=== PATIENT | female | born 1980 | race Two or more races ===

== ENCOUNTER 2017-11-06 14:52 | Emergency (ER) | payer OTHER, BC ==
[2017-11-06] MEDS ORDERED: KETOROLAC TROMETHAMINE 60 MG/2 ML SDV IM ONE (16:07)
--- NOTE | 2017-11-06 16:30 | ER Document Report ---
ED General Pain - General Chief Complaint: Low Back Pain Stated Complaint: BACK PAIN Time Seen by Provider: 11/06/17 15:56 Mode of Arrival: Ambulatory Information source: Patient Notes: Patient is a 37-year-old female comes emergency room complaining of back pain. Patient states that she was hurt on the job back in 2013 at the same company she is with now. She states that she went through physical therapy and ibuprofen and Flexeril and got better. She is been doing daily exercises before she goes to work ever since 2013. Just to stop this from from reoccurring. She states that one other time she did threw her back out and she also did the Flexeril and the ibuprofen along with heating pads and took about a week to get better. 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 It currently does not radiate anywhere except across the back. Most of her pain is on the ribs on each side of the back. Not in the vertebral column. She calls it appears to be in pinching pain. She also denies any loss of urine or stool. TRAVEL OUTSIDE OF THE [place] IN LAST 30 DAYS: No - HPI Onset: This afternoon Onset/Duration: Sudden, Persistent, Worse Quality of pain: Other - Piercing pinching pain Pain Level: 4 Context: Chronic problem Typical of prior episodes of painful crisis: Yes Associated symptoms: Muscle aches Exacerbated by: Denies, Supine, Sitting, Standing, Movement, Walking, Coughing, Deep breathing Relieved by: Denies, Supine, Sitting, Standing, Remaining still Similar symptoms previously: Yes Recently seen / treated by doctor: No - Related Data Allergies/Adverse Reactions: red dye [Red Dye] Allergy (Verified 11/06/17 14:53) Past Medical History - General Information source: Patient - Social History Smoking Status: Never Smoker Cigarette use (# per day): No Chew tobacco use (# tins/day): No Smoking Education Provided: No Frequency of alcohol use: Social Drug Abuse: None Family History: Reviewed & Not Pertinent Patient has suicidal ideation: No Patient has homicidal ideation: No - Past Medical History Cardiac Medical History: Reports: Hx Hypertension Renal/ Medical History: Denies: Hx Peritoneal Dialysis Past Surgical History: Reports: Hx Appendectomy, Hx Tubal Ligation - Immunizations Hx Diphtheria, Pertussis, Tetanus Vaccination: Yes Review of Systems - Review of Systems Constitutional: No symptoms reported EENT: No symptoms reported Cardiovascular: No symptoms reported Respiratory: No symptoms reported Gastrointestinal: No symptoms reported Genitourinary: No symptoms reported Female Genitourinary: No symptoms reported Musculoskeletal: Back pain, Muscle pain Skin: No symptoms reported Hematologic/Lymphatic: No symptoms reported Neurological/Psychological: No symptoms reported -: Yes All other systems reviewed and negative Physical Exam - Vital signs Vitals: Temp Pulse Resp BP Pulse Ox 98.1 F 69 16 125/70 100 11/06/17 14:57 11/06/17 14:57 11/06/17 14:57 11/06/17 14:57 11/06/17 14:57 Interpretation: Normal - Notes Notes: Well-nourished well-developed 37-year-old female. No apparent distress but appears uncomfortable - General General appearance: Alert - HEENT Head: Normocephalic, Atraumatic Eyes: Normal - Respiratory Respiratory status: No respiratory distress Chest status: Nontender Breath sounds: Normal. No: Rales, Rhonchi, Stridor, Wheezing Chest palpation: Normal - Cardiovascular Rhythm: Regular Heart sounds: Normal auscultation Murmur: No - Abdominal Inspection: Normal Distension: No distension. No: Distended, Tympanitic, Distended bladder Bowel sounds: Normal Tenderness: Nontender. No: Tender, McBurney's point, Tsang's sign, Guarding, Rebound Organomegaly: No: No organomegaly, Hepatomegaly, Splenomegaly, Mass - Back Back: Tender, Other - Examination of patient's back shows tenderness to be right around the thoracic spine area. At the end of it. Pain radiates to the right and the left from midline. It is almost as if she is spasming in the intercostal muscles of the ribs. She displays good DTRs she has negative straight leg raises and vascular exam is normal.. 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 No: Involuntary movements, Pronator drift, Weakness, Hemiplegia - Skin Skin Temperature: Warm Skin Moisture: Dry Skin Color: Normal, [place] Course - Re-evaluation Re-evalutation: 11/06/17 17:58 Reevaluation of patient shows her to be slightly improved. We have had a discussion about the injury itself. In that when I was doing my evaluation on her she felt another pop like a rib popping back in. At this point I still believe she is having muscle spasms that are originating from the spinal column going outward. We will send her home on Robaxin and a steroid taper. - Vital Signs Vital signs: Temp Pulse Resp BP Pulse Ox 98.1 F 69 16 125/70 100 11/06/17 14:57 11/06/17 14:57 11/06/17 14:57 11/06/17 14:57 11/06/17 14:57 Discharge - Discharge Clinical Impression: Muscle spasms of neck, Back muscle spasm Condition: Stable Disposition: HOME, SELF-CARE Instructions: Ice Packs ([facility]), Muscle Strain ([facility]) Additional Instructions: Home and rest. Medication as prescribed. As we discussed these appear to be spasms in your back rather than a sciatic presentation. Highly recommend you use ice packs 3 times a day and then may be alternate occasionally with a warm moist heat pack. I would at this point contact your workers comp claim just to make sure the situation is similar to the other one and they may want to be involved from start. I would avoid lifting moving or pulling for the next couple of days. If you have any concerns or problems return to ER for recheck. Prescriptions: Methocarbamol [Robaxin 750 mg Tablet] 750 mg PO ASDIR PRN #20 tablet PRN Reason: Prednisone [Sterapred Ds] 10 mg PO ASDIR PRN #1 tab.ds.pk PRN Reason: Referrals: AISHA MCLAUGHLIN, [employer] [Primary Care Provider] - Follow up as needed
--- NOTE | 2017-11-06 17:33 | RADIOLOGY REPORT (SQ) ---
EXAM DESCRIPTION: T SPINE AP/LAT COMPLETED DATE/TIME: 11/06/2017 5:16 pm REASON FOR STUDY: thoracic back pain COMPARISON: None. NUMBER OF VIEWS: Two views. TECHNIQUE: AP and lateral radiographic images acquired of the thoracic spine. LIMITATIONS: None. FINDINGS: MINERALIZATION: Normal. ALIGNMENT: Normal. No scoliosis. VERTEBRAE: No fracture or bone lesion. Maintained height, normal segmentation. DISCS: No significant loss of height or significant narrowing. No large osteophytes. HARDWARE: None in the spine. MEDIASTINUM AND SOFT TISSUES: Normal heart size and aortic contour. No soft tissue abnormality. VISUALIZED LUNG DIAZ: Clear. OTHER: No other significant finding. IMPRESSION: NO SIGNIFICANT RADIOGRAPHIC FINDING IN THE THORACIC SPINE. TECHNICAL DOCUMENTATION: JOB ID: [id number] [place]-72 2010 [employer]- All Rights Reserved Reading location - IP/workstation name: [employer]
[2017-11-06 18:19] VITALS: BP 112/69
== END 2017-11-06 18:27 | disposition home or self-care (01) ==
LOC: ER 14:52
DX: M62.830 Muscle spasm of back (principal); M62.838 Other muscle spasm; R07.81 Pleurodynia; X50.0XXA Overexertion from strenuous movement or load, initial encounter; Y93.89 Activity, other specified; Y92.512 Supermarket, store or market as the place of occurrence of the external cause; Y99.0 Civilian activity done for income or pay; I10 Essential (primary) hypertension
CPT/HCPCS: 99283; 96372; 72070; J1885

== ENCOUNTER → 2018-08-15 | Outpatient (CLI) | payer BC, OTHER | LOC: LAB 17:41 | PROVIDERS: ATTEND Nurse Practitioner Family | DX: R30.0 Dysuria (principal); R82.71 Bacteriuria | CPT/HCPCS: 87086; 87088; 87186 ==

== ENCOUNTER → 2019-07-07 | Outpatient (CLI) | payer BC ==
[2019-07-07 19:08] LABS: BACTERIA (WET MOUNT) 3+ BACTERIA SEEN; EPITHELIALS (WET MOUNT) 3+ EPITHELIALS SEEN; RBCS (WET MOUNT) RARE RBCS SEEN; T.VAGINALIS (WET MOUNT) NO TRICHOMONAS SEEN; WBCS (WET MOUNT) 1+ WBCS SEEN; YEAST (WET MOUNT) NO YEAST SEEN
[2019-07-07 20:39] LABS: CHLAM PCR DETECTED (NOT DETECT)
== END ==
LOC: LAB 18:53
PROVIDERS: ATTEND Nurse Practitioner Family
DX: N92.0 Excessive and frequent menstruation with regular cycle (principal); R10.2 Pelvic and perineal pain
CPT/HCPCS: 87210; 87491; 87591